=== PATIENT | female | born 1960 | race Hispanic/Latino ===

== ENCOUNTER → 2023-12-23 | Outpatient (CLI) | payer BC, MEDICARE | END | disposition home or self-care (01) | LOC: RAH 13:05 | PROVIDERS: ATTEND Nurse Practitioner Family | DX: Z12.31 Encounter for screening mammogram for malignant neoplasm of breast (principal); M85.88 Other specified disorders of bone density and structure, other site; R92.323 Mammographic fibroglandular density, bilateral breasts; M81.0 Age-related osteoporosis without current pathological fracture | CPT/HCPCS: 77067; 77080 ==

== ENCOUNTER 2024-12-16 01:56 | Observation (INO) | payer BC, MEDICARE ==
[~2024-12-16] VITALS: Ht 162.6 cm; Wt 68.8 kg
[2024-12-16 02:33] LABS: IMMATURE GRANULOCYTE ABSOLUTE 0.05 K/uL (0-1); NUCLEATED RED BLOOD CELLS 0.0 % (0.0-0.19); PLATELET COUNT (AUTO) 252 K/uL (130-400); RED BLOOD CELL COUNT(AUTO) 5.29 MIL/uL (4.00-5.50); RED CELL DISTRIBUTION WIDTH 12.5 % (11.0-15.5); WHITE BLOOD COUNT (AUTO) 13.6 K/uL (4.8-10.8)
[2024-12-16] MEDS: 0.9%NACL 1000ML 1,000 ML IV ONE (02:42)
[2024-12-16 02:49] LABS: CREATININE 1.0 mg/dL (0.5-1.0); GLOMERULAR FILTR. RATE CALC 62.0 mL/min (>90); GLUCOSE,RANDOM 132.0 mg/dL (70-105); SODIUM SERUM 139.0 mmol/L (136-145); UREA NITROGEN, BLOOD 23.0 mg/dL (7-18)
--- NOTE | 2024-12-16 02:52 | ERN ---
General Chief Complaint: Diarrhea Stated Complaint: DIARRHEA Time Seen by MD: 01:59 Time Seen by Midlevel: 01:59 Source: patient History of Present Illness Initial Comments PATIENT IS A 64-YEAR-OLD FEMALE PRESENTING TO THE EMERGENCY DEPARTMENT FOR EVALUATION OF DIARRHEA THAT STARTED YESTERDAY DECEMBER 15, 2024 AT APPROXIMATELY 12:00 P.M. AFTER SHE ATE A HERBALIFE SHAKE. THE PATIENT REPORTS OVER 20 EPISODES OF DIARRHEA OVER THE LAST 12 HOURS. DENIES ANY BLOOD IN THE STOOL. DENIES ANY FEVER, CHILLS, NAUSEA, VOMITING, OR ANY OTHER SYMPTOMS AT THIS TIME. SHE DOES REPORT A HISTORY OF A RIGHT NEPHRECTOMY IN HIS CONCERNED FOR DEHYDRATION. Allergies: Coded Allergies: No Known Allergies (Unverified Allergy, Unknown, 12/16/24) Past Medical History Past Medical History: Diabetes-Type II, Other Medical History Other: KIDNEY CANCER Past Surgical History: Tonsillectomy, Cholecystectomy, Other, Surgical History Other: RT KIDNEY ROS Dictation CONSTITUTIONAL: NEGATIVE EXCEPT FOR HPI HEAD/FACE: NEGATIVE EXCEPT FOR HPI EENT: NEGATIVE EXCEPT FOR HPI RESPIRATORY: NEGATIVE EXCEPT FOR HPI GASTROINTESTINAL/ABDOMINAL: NEGATIVE EXCEPT FOR HPI GENITOURINARY: NEGATIVE EXCEPT FOR HPI MUSCULOSKELETAL: NEGATIVE EXCEPT FOR HPI INTEGUMENTARY: NEGATIVE EXCEPT FOR HPI NEUROLOGICAL/PSYCH: NEGATIVE EXCEPT FOR HPI HEMATOLOGIC/LYMPHATIC: NEGATIVE EXCEPT FOR HPI ALL SYSTEMS NEGATIVE, EXCEPT NOTED ABOVE. 13 POINT REVIEW OF SYSTEMS ASSESSED AND ALL NEGATIVE EXCEPT FOR ABOVE. Physical Exam Physical Exam Dictation VITAL SIGNS REVIEWED GENERAL APPEARANCE: ALERT, ORIENTED X 3, NO ACUTE DISTRESS, WELL DEVELOPED, NOURISHED. HEAD AND FACE: NON-TRAUMATIC. EYES: PERRL, PINK CONJUNCTIVAS, EYELID NO TRAUMA, ANTERIOR CHAMBER WITH ARCUS SENILIS. EARS: PINNAS INTACT AND NO SIGNS OF TRAUMA OR ERYTHEMA EAR CANALS CLEAR AND NO DISCHARGE TM NO ERYTHEMA NOSE: NO DISCHARGE, NO BLEEDING. OROPHARYNX: MOUTH NORMAL, TONGUE PINK, PHARYNX CLEAR,NO ERYTHEMA, TONSILS NO EXUDATES, NO ABSCESSES NOTED, MUCOUS MEMBRANE MOIST NECK: SUPPLE, NON-TENDER, NO THYROMEGALY, NO MASSES, NO JVD, NO BRUITS BREAST:DEFERRED CHEST:NO TENDERNESS, NO CREPITUS, NO PARADOXICAL MOVEMENT, NO RETRACTIONS LUNGS:CLEAR, WELL-VENTILATED, SYMMETRIC, NO RALES, NO WHEEZING, NO RHONCHI, NO STRIDOR, GOOD BREATH SOUNDS BILATERALLY HEART: REGULAR RATE, REGULAR RHYTHM, NO MURMUR, NO GALLOPS VASCULAR: NO PERIPHERAL EDEMA, ABDOMEN: SOFT, POSITIVE BOWEL SOUNDS, NONDISTENDED, NO GUARDING, NONTENDER, NO REBOUND, NO MASSES NO HEPATOMEGALY, NO SPLENOMEGALY, NO BROWNE'S SIGN, NO HERNIAS. RECTAL: DEFERRED GENITAL: DEFERRED NEUROLOGICAL: NORMAL SPEECH, MOTOR FUNCTION INTACT, SENSORY FUNCTION INTACT MUSCULOSKELETAL: NECK NONTENDER, FULL RANGE OF MOTION, BACK NONTENDER, FULL RANGE OF MOTION, EXTREMITIES: NONTENDER, FULL RANGE OF MOTION SKIN: COLOR PINK, DRY, NO TURGOR, NO RASH, NO LACERATIONS, NO ABRASIONS, NO CONTUSIONS. LYMPHATIC: DEFERRED Results Laboratory and Microbiology Lab and Micro Result Laboratory Tests Test 12/16/24 02:25 White Blood Count 13.6 K/uL (4.8-10.8) H Red Blood Count 5.29 MIL/uL (4.00-5.50) Hemoglobin 16.4 g/dL (12.0-16.0) H Hematocrit 48.3 % (36-48) H Mean Corpuscular Volume 91.3 fL (79-99) Mean Corpuscular Hemoglobin 31.0 pg (27.0-33.0) Mean Corpuscular Hemoglobin Concent 34.0 g/dL (32.0-36.0) Red Cell Distribution Width 12.5 % (11.0-15.5) Platelet Count 252 K/uL (130-400) Mean Platelet Volume 9.5 fL (7.5-10.5) Immature Granulocyte % (Auto) 0.4 % (0-1) Neutrophils (%) (Auto) 63.5 % (40.0-77.0) Lymphocytes (%) (Auto) 27.0 % (21.0-51.0) Monocytes (%) (Auto) 6.8 % (3.0-13.0) Eosinophils (%) (Auto) 2.1 % (0.0-8.0) Basophils (%) (Auto) 0.2 % (0.0-5.0) Neutrophils # (Auto) 8.7 K/uL (1.8-7.7) H Lymphocytes # (Auto) 3.7 K/uL (1.0-4.8) Monocytes # (Auto) 0.9 K/uL (0.1-1.0) Eosinophils # (Auto) 0.28 K/uL (0.00-0.70) Basophils # (Auto) 0.03 K/uL (0.00-0.20) Absolute Immature Granulocyte (auto 0.05 K/uL (0-1) Nucleated Red Blood Cells 0.0 % (0.0-0.19) Sodium Level 139 mmol/L (136-145) Potassium Level 4.1 mmol/L (3.5-5.1) Chloride Level 107 mmol/L (101-111) Carbon Dioxide Level 20 mmol/L (21-32) L Blood Urea Nitrogen 23 mg/dL (7-18) H Creatinine 1.0 mg/dL (0.5-1.0) Glomerular Filtration Rate Calc 62 mL/min (>90) Random Glucose 132 mg/dL (70-105) H Total Calcium 9.0 mg/dL (8.5-10.1) Total Bilirubin 0.7 mg/dL (0.2-1.0) Direct Bilirubin 0.2 mg/dL (0.0-0.3) Aspartate Amino Transf (AST/SGOT) 21 U/L (10-37) Alanine Aminotransferase (ALT/SGPT) 29 U/L (12-78) Alkaline Phosphatase 77 U/L (50-136) Total Protein 7.5 g/dL (6.0-8.3) Albumin 4.3 g/dL (3.5-5.0) Lipase 43 U/L (16-77) Labs Reviewed?: Yes MDM MDM: DIFFERENTIAL DIAGNOSIS: DEHYDRATION, ELECTROLYTE ABNORMALITY RATIONALE: TESTS CONSIDERED AND ORDERED SECONDARY TO SHARED DECISION MAKING INCLUDE: PREVIOUS OUTSIDE RECORDS REVIEWED: OLD ER VISITS. RISK OF COMPLICATION AND/OR MORBIDITY OR MORTALITY OF PATIENT MANAGEMENT: NONE MEDICATIONS-PER MEDICATION RECONCILIATION NEED FOR HOSPITALIZATION: PATIENT DOES MEET CRITERIA FOR HOSPITALIZATION. NEED FOR EMERGENCY MAJOR/MINOR SURGERY: NO THERE ARE NO SOCIAL CONCERNS WITH THIS PATIENT. PRESCRIPTION DRUG MANAGEMENT PRESCRIPTIONS WILL INCLUDE SYMPTOMATIC CARE PATIENT'S PRIOR EXTERNAL MEDICAL RECORDS FROM OTHER ER VISITS WERE REVIEWED BY ME INDICATED. PRIOR TESTING AND RESULTS FROM PREVIOUS VISITS WERE REVIEWED. PRIOR TESTS WERE TAKEN INTO ACCOUNT WITH MEDICAL DECISION MAKING AND RESOURCE UTILIZATION, INDEPENDENT HISTORIAN/HISTORIANS WERE USED TO OBTAIN COMPLETE MEDICAL HISTORY. I INDEPENDENTLY INTERPRETED THE TEST THAT WERE PERFORMED, RESULTS WERE REVIEWED BY ME AND CONSIDERED FINDINGS ON RADIOLOGY IF ORDERED. MEDICAL MANAGEMENT AND EXAMINATION INTERPRETATION DISCUSSIONS WERE HAD BY ME WITH OTHER QUALIFIED HEALTHCARE PROFESSIONALS INDICATED FOR THE PATIENT'S CARE. ED Course Orders Procedure Category Date Status Time Cbc With Differential LAB 12/16/24 Complete 02:11 Basic Metabolic Panel LAB 12/16/24 Complete 02:11 Hepatic Function Panel LAB 12/16/24 Complete 02:11 Lipase LAB 12/16/24 Complete 02:11 0.9%Nacl 1000ml (Ns PHA 12/16/24 Complete 1000ml) 02:30 Stool Panel Gi By Pcr LAB 12/16/24 In Process 02:48 C Difficile A/B LAB 12/16/24 In Process 02:48 Urinalysis Profile LAB 12/16/24 Logged 02:55 Current Medications Medications (Trade) Dose Ordered Sig/Sonya Route PRN Reason Start Time Stop Time Status Last Admin Dose Admin Sodium Chloride 1,000 ml @ 0 mls/hr ONCE ONCE IV 12/16/24 02:30 12/16/24 02:31 DC 12/16/24 02:42 Vital Signs Date Time Temp Pulse Resp B/P (MAP) Pulse Ox O2 Delivery O2 Flow Rate FiO2 12/16/24 02:16 97.2 103 18 141/62 98 Room Air* 0 21 12/16/24 01:58 99.0 115 20 151/76 97 Room Air DX & DISP Disposition: Inpatient Departure Impression: Primary Impression: Severe diarrhea Additional Impression: Dehydration Condition: Stable Referrals: HUYEN WORRELL MD (PCP) I have reviewed the case, and I agree with, Diagnosis and Plan I PERFORMED THE SUBSTANTIVE PORTION OF THE VISIT. I HAVE REVIEWED AND PERSONALLY MADE AND APPROVE THE MANAGEMENT PLAN THAT IS DOCUMENTED IN THE NOTE BY MYSELF OR THE NICOLE. I ACKNOWLEDGE FOR RESPONSIBILITY FOR THE PATIENT'S MANAGEMENT PLAN. NIKHIL WORRELL Dec 16, 2024 02:52
[2024-12-16 02:53] LABS: ASPARTATE AMINOTRANSFERASE 21.0 U/L (10-37); TOTAL PROTEIN, SERUM 7.5 g/dL (6.0-8.3)
[2024-12-16] MEDS: LACTATED RINGERS 1000ML 1,000 ML IV SCH (03:18)
[2024-12-16 03:26] LABS: ABG OXYGEN SATURATION 86.9 % (94.0-98.0); BASE EXCESS,VENOUS BLOOD GAS -8.2 (-2.0-3.0); DEVICE COMMENT VBG; HCO3,VENOUS BLOOD GAS 17.4 (22.0-29.0); PCO2,VENOUS BLOOD GAS 36 (38-54); PH,VENOUS BLOOD GAS 7.298 (7.320-7.430); PO2,VENOUS BLOOD GAS 59.2 mmHg (23.0-48.0); TEMPERATURE, CELSIUS BG 37.0 CELSIUS (35.5-37.0); VENT MODE, BG RA (ROOM AIR)
[2024-12-16 03:43] LABS: RAPID GROUP A STREP negative (NEGATIVE)
[2024-12-16] MEDS ORDERED: LISI2.5T13 PO (03:43)
[2024-12-16] MEDS ORDERED: ATOR20TA65 PO (03:43)
[2024-12-16] MEDS ORDERED: DAPA10TA PO (03:43)
[2024-12-16 03:47] LABS: APPEARANCE,URINE CLEAR (CLEAR); GLUCOSE, URINE (UA) >=1000 mg/dL (NEGATIVE); LEUKOCYTE ESTERASE ,URINE NEGATIVE Leu/uL (NEGATIVE); NITRATE,URINE NEGATIVE (NEGATIVE); OCCULT BLOOD,URINE NEGATIVE (NEGATIVE)
[2024-12-16] MEDS ORDERED: TIRZ5PEN SQ (03:47)
[2024-12-16 03:50] LABS: SARS-CoV-2, RNA, NAAT NEGATIVE SARS CoV-2 (NEGATIVE)
[2024-12-16 03:50] LABS: ADD UA MICROSCOPIC YES
[2024-12-16 03:51] LABS: SQUAMOUS EPITHELIAL CELL,UR RARE /HPF (0-2)
[2024-12-16 03:59] LABS: INFLUENZA TYPE A Negative For Type A (NEGATIVE); INFLUENZA TYPE B Negative For Type B (NEGATIVE)
--- NOTE | 2024-12-16 05:07 | HP ---
[facility] HISTORY AND PHYSICAL Date of Service: Dec 16, 2024 Time of Service: 04:07 Attending/ Supervising physicians: Dr. Frederick and Dr. Adriana Padilla HISTORY OF PRESENT ILLNESS: Ms. Henry is a 64-year-old female with a history of DM type, kidney cancer s/p right nephrectomy who [place] [facility] [place] of diarrhea that started yesterday, at approximately 12:00 p.m. after taking Herbalife shake. The patient stated that she has taken Herbalife shakes for over 10 years and has never had problems with it. Today she drank at really fast due being busy with a chore and shortly after she developed diarrhea. She reports that it is most likely a bacteria or virus because she has taken Herbalife for many years. The patient reported she has had over 20 episodes of diarrhea over the last 12 hours prior to arrival. She states that due to her right nephrectomy she is concern for dehydration which prompted the ED visit. The patient denied any bloody stools, fever, chills, nausea, vomiting, any other pain, problem or concern. WBCs 13.6 on arrival. Venous gases: pH 7.298, pCO2 36, PO2 59.2, bicarbonate 17.4, base excess -8.2. UA was negative for leukocytes and nitrites. The patient was also negative for influenza, COVID, rapid strep, and C diff. ED provider reports that due to age, continued diarrhea in ER, he is not comfortable sending the patient home and he requests patient be admitted to the hospital with a diagnosis of a severe diarrhea and dehydration. I assessed the patient at bedside. The patient was in the restroom having an episode of diarrhea. Upon returned to the room the patient appeared comfortable, breathing was even, unlabored, in no distress. I informed her of labs, diagnostics, and plan of care. She verbalized understanding and is in agreement with the plan. Plan and assessment are listed below. REVIEW OF SYSTEMS 12-point ROS reviewed with the patient. All pertinent positives mentioned above. Otherwise negative, noncontributory, non-pertinent. PAST MEDICAL HISTORY: As mentioned above PAST SURGICAL HISTORY: Tonsillectomy, cholecystectomy, , right nephrectomy PAST SOCIAL HISTORY: Denied alcohol, tobacco, illicit drug use FAMILY HISTORY: Noncontributory Coded Allergies: No Known Allergies (Unverified Allergy, Unknown, 12/16/24) PHYSICAL EXAM GENERAL APPEARANCE: The patient is awake, alert, and oriented, in no acute cardiopulmonary distress. NEUROLOGICAL: Cranial nerves II-XII grossly intact. Motor is 5/5 in bilateral upper and lower extremities proximal to distal. No sensory deficits. HEENT: Face is symmetric. Pupils are equal and reactive. Extraocular movements are intact. NECK: Supple. No JVD. No thyromegaly. No submental, submandibular, pre- /postauricular, occipital or supraclavicular lymphadenopathy. CHEST: Normal chest expansion. No Telemetry. LUNGS: Absence of any rales, rhonchi or any wheezing. CARDIOVASCULAR: Regular. S1 and S2 normal. No appreciable rubs, murmurs or gallops. ABDOMEN: Soft, nontender, and nondistended. There is no rebound, voluntary guarding, or rigidity. : Deferred. No Francisco. EXTREMITIES: Non-edematous and not cyanotic. No clubbing. Good capillary refill. SKIN: No skin breakdown. Vital Sign (Last 24 Hours) 12/16/24 03:41 Temp 97.3 Pulse 98 Resp 18 B/P (MAP) 121/44 Pulse Ox 98 O2 Delivery Room Air* O2 Flow Rate 0 FiO2 21 LABS: Laboratory: Test 12/16/24 03:29 12/16/24 03:28 12/16/24 03:25 12/16/24 02:35 Range/Units Influenza Type A Antigen Negative For Type A NEGATIVE Influenza Type B Antigen Negative For Type B NEGATIVE SARS-CoV-2, RNA, NAAT NEGATIVE SARS CoV-2 NEGATIVE Group A Streptococcus Rapid negative NEGATIVE Urine Color YELLOW YELLOW Urine Appearance CLEAR CLEAR Urine pH 5.5 5.0-8.0 Urine Specific [place]man 1.026 1.001-1.031 Urine Protein NEGATIVE NEGATIVE mg/dL Urine Glucose (UA) >=1000 H NEGATIVE mg/dL Urine Ketones NEGATIVE NEGATIVE mg/dL Urine Occult Blood NEGATIVE NEGATIVE Urine Nitrate NEGATIVE NEGATIVE Urine Bilirubin NEGATIVE NEGATIVE mg/dL Urine Urobilinogen 0.2 0.2-1.0 mg/dL Urine Leukocyte Esterase NEGATIVE NEGATIVE Lee/uL Urine RBC 0-1 0-1 /HPF Urine WBC 2-5 H 0-1 /HPF Urine Squamous Epithelial Cells RARE 0-2 /HPF Urine Bacteria FEW None Seen /HPF Blood Gas Specimen Type Venous Arterial Blood Oxygen Saturation 86.9 L 94.0-98.0 % Venous Blood pH 7.298 L 7.320-7.430 Venous Blood pCO2 at Patient Temp 36 L 38-54 Venous Blood pO2 at Patient Temp 59.2 H 23.0-48.0 mmHg Venous Blood HCO3 17.4 L 22.0-29.0 Venous Blood Base Excess -8.2 L -2.0-3.0 Venous Blood Total Hemoglobin 15.5 12.0-16.0 Sodium (Blood Gas) 139 136-145 MMOL/L Bedside Potassium (Blood Gas) 4.1 3.4-4.5 MMOL/L Bedside Chloride (Blood Gas) 112 H 98-107 MMOL/L Bedside Glucose (Blood Gas) 118 H 65-95 MG/DL Bedside Ionized Calcium (Blood Gas) 1.19 1.15-1.33 MMOL/L Bedside Lactic Acid (Blood Gas) 0.88 H 0.36-0.75 MMOL/L Blood Gas Temperature 37.0 35.5-37.0 CELSIUS Blood Gas Vent Mode RA ROOM AIR FiO2 21.0 % Blood Gas Specimen Comment VBG C. difficile Antigen and Toxins A,B NEG TOXIGENIC CDIFF NEG Test 12/16/24 02:25 Range/Units White Blood Count 13.6 H 4.8-10.8 K/uL Red Blood Count 5.29 4.00-5.50 MIL/uL Hemoglobin 16.4 H 12.0-16.0 g/dL Hematocrit 48.3 H 36-48 % Mean Corpuscular Volume 91.3 79-99 fL Mean Corpuscular Hemoglobin 31.0 27.0-33.0 pg Mean Corpuscular Hemoglobin Concent 34.0 32.0-36.0 g/dL Red Cell Distribution Width 12.5 11.0-15.5 % Platelet Count 252 130-400 K/uL Mean Platelet Volume 9.5 7.5-10.5 fL Immature Granulocyte % (Auto) 0.4 0-1 % Neutrophils (%) (Auto) 63.5 40.0-77.0 % Lymphocytes (%) (Auto) 27.0 21.0-51.0 % Monocytes (%) (Auto) 6.8 3.0-13.0 % Eosinophils (%) (Auto) 2.1 0.0-8.0 % Basophils (%) (Auto) 0.2 0.0-5.0 % Neutrophils # (Auto) 8.7 H 1.8-7.7 K/uL Lymphocytes # (Auto) 3.7 1.0-4.8 K/uL Monocytes # (Auto) 0.9 0.1-1.0 K/uL Eosinophils # (Auto) 0.28 0.00-0.70 K/uL Basophils # (Auto) 0.03 0.00-0.20 K/uL Absolute Immature Granulocyte (auto 0.05 0-1 K/uL Nucleated Red Blood Cells 0.0 0.0-0.19 % Sodium Level 139 136-145 mmol/L Potassium Level 4.1 3.5-5.1 mmol/L Chloride Level 107 101-111 mmol/L Carbon Dioxide Level 20 L 21-32 mmol/L Blood Urea Nitrogen 23 H 7-18 mg/dL Creatinine 1.0 0.5-1.0 mg/dL Glomerular Filtration Rate Calc 62 >90 mL/min Random Glucose 132 H 70-105 mg/dL Total Calcium 9.0 8.5-10.1 mg/dL Total Bilirubin 0.7 0.2-1.0 mg/dL Direct Bilirubin 0.2 0.0-0.3 mg/dL Aspartate Amino Transf (AST/SGOT) 21 10-37 U/L Alanine Aminotransferase (ALT/SGPT) 29 12-78 U/L Alkaline Phosphatase 77 50-136 U/L Total Protein 7.5 6.0-8.3 g/dL Albumin 4.3 3.5-5.0 g/dL Lipase 43 16-77 U/L Current Medications Medications (Trade) Dose Ordered Sig/Sonya Route PRN Reason Start Time Stop Time Status Last Admin Dose Admin Acetaminophen (TYLenol 325MG TAB) 650 mg Q6H PRN PO FEVER/MILD PAIN LEVEL 1-3 12/16/24 03:30 01/15/25 03:29 Acetaminophen (TYLenol 650MG SUPPOSITORY) 650 mg Q6H PRN RC FEVER / MILD PAIN 1-3 IF NPO 12/16/24 03:30 01/15/25 03:29 Insulin Human Regular (humuLIN R 100 UNIT/ML 3ML) INSULIN SLIDING SCAL... ACHS SQ 12/16/24 07:30 01/15/25 07:29 Labetalol HCl (TRANdate 20MG SYG) 10 mg Q2H PRN IV SBP GREATER THAN 160 12/16/24 03:30 01/15/25 03:29 Lactated Ringer's 1,000 ml @ 100 mls/hr Q10H IV 12/16/24 03:30 01/15/25 03:29 12/16/24 03:18 100 MLS/HR Loperamide HCl (Immodium Liquid) 2 mg TID PRN PO AFTER EACH LOOSE STOOL 12/16/24 05:00 01/15/25 04:59 UNV Loperamide HCl (Immodium Liquid) 4 mg ONCE PO 12/16/24 05:00 01/15/25 04:59 UNV Ondansetron HCl (zoFRAN 4MG INJ) 4 mg Q6H PRN IVP NAUSEA/VOMITING 12/16/24 03:30 01/15/25 03:29 12/16/24 03:33 4 MG Temazepam (restORIL 15 MG CAP) 15 mg HS PRN PO INSOMNIA/SLEEP 12/16/24 03:30 01/15/25 03:29 DIAGNOSTICS / RADIOLOGY: [ ] ASSESSMENT: Dehydration s/p severe diarrhea, POA Acute kidney injury, GFR 62 (no other GFR to compare) Metabolic acidosis, POA Leukocytosis, POA Erythrocytosis, POA Diabetes mellitus with hyperglycemia, POA Glucosuria, POA Kidney cancer s/p right nephrectomy PLAN: -Admit to medical floor. -Start Rocephin 2 g IV daily for empiric treatment/possible intra-abdominal infection. -LR at 100 mL/hour. -Start brat diet as tolerated. -Add cultures to the stool sent. (negative for C diff) -Imodium 4 mg p.o. now, then Imodium 2 mg t.i.d. prn. -Monitor for any fevers. Follow WBC and stool cultures. -Monitor renal and liver function. -Monitor electrolytes and treat accordingly PRN -Reconciled home medication atorvastatin and lisinopril. -Hold home medications: Mounjaro and Farxiga and start insulin sliding scale.. -Blood pressure checks every 4 hours and as needed. -AM labs. -GI and DVT prophylaxis -Further plan/orders per hospitalization course. 1. Which of the following were discussed? Hospice Care - No Therapeutic options - Yes Advance Directives - Yes Other discussions - 2. Discussed with who? The patient 3. Voluntary nature of this service was explained to the patient? Yes 4. Amount of time spent - _ Over 35 minute 5. Reviewed by Physician? (if this service was performed by NICOLE) Yes ATTESTATION BY PHYSICIAN I have seen and examined the patient. I reviewed the documentation, medical decision making, and treatment plan as noted by the NICOLE above. I agree with the findings and plan of care. AM[facility]ILIS TAMEZ [facility] Dec 16, 2024 05:07
[2024-12-16] MEDS: SODIUM BICARB 50MEQ 50ML VIAL IV ONE (05:21)
[2024-12-16] MEDS: LOPERAMIDE 1 MG/7.5 ML UDCUP PO ONE (05:21)
[2024-12-16] MEDS ORDERED: GLUCAGON 1MG KIT 1 MG ML IM PRN (08:30)
[2024-12-16] MEDS ORDERED: PoTASSium chl 10% ELIXIR 20MEQ 20 MEQ/15 ML UDCUP PO PRN (08:30)
[2024-12-16] MEDS ORDERED: DEXTROSE 50%-WATER 50 ML DISP.SYRIN IV PRN (08:30)
[2024-12-16 09:00] LABS: ABG OXYGEN SATURATION 79.0 % (94.0-98.0); BASE EXCESS,VENOUS BLOOD GAS -5.3 (-2.0-3.0); DEVICE COMMENT VEN VERO; HCO3,VENOUS BLOOD GAS 17.2 (22.0-29.0); PCO2,VENOUS BLOOD GAS 26 (38-54); PH,VENOUS BLOOD GAS 7.431 (7.320-7.430); PO2,VENOUS BLOOD GAS 41.0 mmHg (23.0-48.0); TEMPERATURE, CELSIUS BG 37.0 CELSIUS (35.5-37.0); VENT MODE, BG ROOM AIR (ROOM AIR)
[2024-12-16 09:04] LABS: NUCLEATED RED BLOOD CELLS 0.0 % (0.0-0.19); PLATELET COUNT (AUTO) 230.0 K/uL (130-400); RED BLOOD CELL COUNT(AUTO) 4.66 MIL/uL (4.00-5.50); RED CELL DISTRIBUTION WIDTH 12.5 % (11.0-15.5); WHITE BLOOD COUNT (AUTO) 11.4 K/uL (4.8-10.8)
[2024-12-16 09:18] LABS: ASPARTATE AMINOTRANSFERASE 18.0 U/L (10-37); CREATININE 0.8 mg/dL (0.5-1.0); GLOMERULAR FILTR. RATE CALC 81.0 mL/min (>90); GLUCOSE,RANDOM 92.0 mg/dL (70-105); SODIUM SERUM 144.0 mmol/L (136-145); TOTAL PROTEIN, SERUM 6.5 g/dL (6.0-8.3); UREA NITROGEN, BLOOD 20.0 mg/dL (7-18)
[2024-12-16 09:30] LABS: PHOSPHORUS 3.4 mg/dL (2.5-4.9)
[2024-12-16] MEDS: LISINOPRIL 2.5 MG TABLET PO SCH (10:20)
[2024-12-16] MEDS: LOPERAMIDE 1 MG/7.5 ML UDCUP PO PRN (11:00)
--- NOTE | 2024-12-16 21:14 | NUR ---
REPORT GIVEN TO NURSE KIMBALL, ALL QUESTIONS ANSWERED AT THIS TIME
[2024-12-16 21:25] VITALS: BP 125/55; PULSE 99; RESP 20; TEMP 98
--- NOTE | 2024-12-16 21:25 | NUR ---
ADMIT PT ADMITTED TO ROOM 326, AAOX3. AMBULATORY WITHOUT ASSISTANCE. ADMISSION CARE DONE. CONTINUED IVF ON LR FROM ER REGULATED AT 100CC/HR. ADMISSION DATA BASE COMPLETED. V/S MONITORED, STABLE. PLACED PT ON TELE MONITOR WITH ST MG=254. ORIENTED TO ROOM AND UNIT. IN FOR MORE CARE AND MANAGEMENT.
[2024-12-16 21:30] VITALS: O2SAT 98
[2024-12-17] VITALS (7 sets, daily range): BP systolic 115–145; BP diastolic 54–75; PULSE 94–106; RESP 18–20; TEMP 97.7–98.5; O2SAT 97–98
--- NOTE | 2024-12-17 05:27 | NUR ---
ROUNDS PT RESTING IN BED. NO DISTRESS NOTED. DENIES ANY CONCERNS AT THIS TIME. KEPT RESTED AND COMFORTABLE. CALL LIGHT WITHIN REACH. FOR MORE CARE.
[2024-12-17 06:20] LABS: NUCLEATED RED BLOOD CELLS 0.0 % (0.0-0.19); PLATELET COUNT (AUTO) 189.0 K/uL (130-400); RED BLOOD CELL COUNT(AUTO) 4.38 MIL/uL (4.00-5.50); RED CELL DISTRIBUTION WIDTH 12.3 % (11.0-15.5); WHITE BLOOD COUNT (AUTO) 11.8 K/uL (4.8-10.8)
[2024-12-17 06:38] LABS: CREATININE 0.7 mg/dL (0.5-1.0); GLOMERULAR FILTR. RATE CALC 95.0 mL/min (>90); GLUCOSE,RANDOM 97.0 mg/dL (70-105); PHOSPHORUS 2.9 mg/dL (2.5-4.9); SODIUM SERUM 141.0 mmol/L (136-145); UREA NITROGEN, BLOOD 13.0 mg/dL (7-18)
[2024-12-17] MEDS: PoTASSium chloRIDE 20MEQ ER 20 MEQ ERTAB PO PRN (09:14)
[2024-12-17] MEDS: MAGNESIUM 2GM PREMIX 50ML 50 ML IV PRN (09:15)
[2024-12-17] MEDS ORDERED: MAGNESIUM 2GM PREMIX 50ML 50 ML IV SCH (10:00)
--- NOTE | 2024-12-17 12:23 | PN ---
[facility] PROGRESS NOTE Date of Service: Dec 17, 2024 Time of Service: 12:21 SUBJECTIVE: 12/17 patient remains admitted to the medical floor, case discussed with the RN, no acute events overnight, the time of my visit the patient is comfortably in bed, getting supportive care with IV fluids, she feels better compared to yesterday, less diarrhea, no nausea, no vomiting, no abdominal pain, she has been on clear liquid diet, tolerating well, she would like to try to be advanced. Leukocytosis improving, today hemoglobin 13.7, hematocrit 40.2 and WBC of 11.8, magnesium level of 1.6, we will give 2 g of magnesium sulfate IV x1, we will advance diet to diabetic diet, no modifications. Anticipate discharge home in the next 24 hours if medically stable, plan of action di scussed with the patient and family at bedside, all questions answered, in agreement. REVIEW OF SYSTEMS 12-point ROS reviewed with the patient. All pertinent positives mentioned above. Otherwise negative, noncontributory, non-pertinent. PHYSICAL EXAM GENERAL APPEARANCE: The patient is awake, alert, and oriented, in no acute cardiopulmonary distress. NEUROLOGICAL: Cranial nerves II-XII grossly intact. Motor is 5/5 in bilateral upper and lower extremities proximal to distal. No sensory deficits. HEENT: Face is symmetric. Pupils are equal and reactive. Extraocular movements are intact. NECK: Supple. No JVD. No thyromegaly. No submental, submandibular, pre- /postauricular, occipital or supraclavicular lymphadenopathy. CHEST: Normal chest expansion. No Telemetry. LUNGS: Absence of any rales, rhonchi or any wheezing. CARDIOVASCULAR: Regular. S1 and S2 normal. No appreciable rubs, murmurs or gallops. ABDOMEN: Soft, nontender, and nondistended. There is no rebound, voluntary guarding, or rigidity. : Deferred. No Francisco. EXTREMITIES: Non-edematous and not cyanotic. No clubbing. Good capillary refill. SKIN: No skin breakdown. Vital Signs (last 8hr) Date Time Temp Pulse Resp B/P (MAP) Pulse Ox O2 Delivery O2 Flow Rate FiO2 12/17/24 11:33 97.7 106 18 145/54 97 Room Air 12/17/24 08:00 98 Room Air* 0 21 12/17/24 08:00 98.4 103 18 118/60 98 Room Air 12/17/24 04:54 98.4 104 20 129/75 98 Room Air LABS: Laboratory: Test 12/17/24 10:44 12/17/24 06:11 12/16/24 08:59 12/16/24 08:16 Range/Units Whole Blood Glucose 119 H 70-110 MG/DL White Blood Count 11.8 H 4.8-10.8 K/uL Red Blood Count 4.38 4.00-5.50 MIL/uL Hemoglobin 13.7 12.0-16.0 g/dL Hematocrit 40.2 36-48 % Mean Corpuscular Volume 91.8 79-99 fL Mean Corpuscular Hemoglobin 31.3 27.0-33.0 pg Mean Corpuscular Hemoglobin Concent 34.1 32.0-36.0 g/dL Red Cell Distribution Width 12.3 11.0-15.5 % Platelet Count 189 130-400 K/uL Mean Platelet Volume 9.6 7.5-10.5 fL Nucleated Red Blood Cells 0.0 0.0-0.19 % Sodium Level 141 136-145 mmol/L Potassium Level 3.6 3.5-5.1 mmol/L Chloride Level 110 101-111 mmol/L Carbon Dioxide Level 24 21-32 mmol/L Blood Urea Nitrogen 13 7-18 mg/dL Creatinine 0.7 0.5-1.0 mg/dL Glomerular Filtration Rate Calc 95 >90 mL/min Random Glucose 97 70-105 mg/dL Total Calcium 8.0 L 8.5-10.1 mg/dL Phosphorus Level 2.9 2.5-4.9 mg/dL Magnesium Level 1.60 L 1.80-2.40 mg/dL Blood Gas Specimen Type Venous Arterial Blood Oxygen Saturation 79.0 L 94.0-98.0 % Venous Blood pH 7.431 H 7.320-7.430 Venous Blood pCO2 at Patient Temp 26 L 38-54 Venous Blood pO2 at Patient Temp 41.0 23.0-48.0 mmHg Venous Blood HCO3 17.2 L 22.0-29.0 Venous Blood Base Excess -5.3 L -2.0-3.0 Blood Gas Temperature 37.0 35.5-37.0 CELSIUS Blood Gas Vent Mode ROOM AIR ROOM AIR FiO2 21.0 % Blood Gas Specimen Comment [facility] Hemoglobin A1c 5.5 4.0-6.0 % Estimated Average Glucose (eAG) 111 70-126 mg/dL Total Bilirubin 0.5 # 0.2-1.0 mg/dL Aspartate Amino Transf (AST/SGOT) 18 10-37 U/L Alanine Aminotransferase (ALT/SGPT) 24 12-78 U/L Alkaline Phosphatase 66 50-136 U/L Total Protein 6.5 6.0-8.3 g/dL Albumin 3.6 3.5-5.0 g/dL Procalcitonin < 0.05 L 0.05-0.5 ng/mL Thyroid Stimulating Hormone (TSH) 1.74 0.36-3.74 uIU/mL Test 12/16/24 03:29 12/16/24 03:28 12/16/24 03:25 12/16/24 02:35 Range/Units Influenza Type A Antigen Negative For Type A NEGATIVE Influenza Type B Antigen Negative For Type B NEGATIVE SARS-CoV-2, RNA, NAAT NEGATIVE SARS CoV-2 NEGATIVE Group A Streptococcus Rapid negative NEGATIVE Urine Color YELLOW YELLOW Urine Appearance CLEAR CLEAR Urine pH 5.5 5.0-8.0 Urine Specific [place] 1.026 1.001-1.031 Urine Protein NEGATIVE NEGATIVE mg/dL Urine Glucose (UA) >=1000 H NEGATIVE mg/dL Urine Ketones NEGATIVE NEGATIVE mg/dL Urine Occult Blood NEGATIVE NEGATIVE Urine Nitrate NEGATIVE NEGATIVE Urine Bilirubin NEGATIVE NEGATIVE mg/dL Urine Urobilinogen 0.2 0.2-1.0 mg/dL Urine Leukocyte Esterase NEGATIVE NEGATIVE Lee/uL Urine RBC 0-1 0-1 /HPF Urine WBC 2-5 H 0-1 /HPF Urine Squamous Epithelial Cells RARE 0-2 /HPF Urine Bacteria FEW None Seen /HPF Venous Blood Total Hemoglobin 15.5 12.0-16.0 Sodium (Blood Gas) 139 136-145 MMOL/L Bedside Potassium (Blood Gas) 4.1 3.4-4.5 MMOL/L Bedside Chloride (Blood Gas) 112 H 98-107 MMOL/L Bedside Glucose (Blood Gas) 118 H 65-95 MG/DL Bedside Ionized Calcium (Blood Gas) 1.19 1.15-1.33 MMOL/L Bedside Lactic Acid (Blood Gas) 0.88 H 0.36-0.75 MMOL/L C. difficile Antigen and Toxins A,B NEG TOXIGENIC CDIFF NEG Test 12/16/24 02:25 Range/Units Immature Granulocyte % (Auto) 0.4 0-1 % Neutrophils (%) (Auto) 63.5 40.0-77.0 % Lymphocytes (%) (Auto) 27.0 21.0-51.0 % Monocytes (%) (Auto) 6.8 3.0-13.0 % Eosinophils (%) (Auto) 2.1 0.0-8.0 % Basophils (%) (Auto) 0.2 0.0-5.0 % Neutrophils # (Auto) 8.7 H 1.8-7.7 K/uL Lymphocytes # (Auto) 3.7 1.0-4.8 K/uL Monocytes # (Auto) 0.9 0.1-1.0 K/uL Eosinophils # (Auto) 0.28 0.00-0.70 K/uL Basophils # (Auto) 0.03 0.00-0.20 K/uL Absolute Immature Granulocyte (auto 0.05 0-1 K/uL Direct Bilirubin 0.2 0.0-0.3 mg/dL Lipase 43 16-77 U/L Current Medications Medications (Trade) Dose Ordered Sig/Sonya Route PRN Reason Start Time Stop Time Status Last Admin Dose Admin Acetaminophen (TYLenol 325MG TAB) 650 mg Q6H PRN PO FEVER/MILD PAIN LEVEL 1-3 12/16/24 03:30 01/15/25 03:29 Acetaminophen (TYLenol 650MG SUPPOSITORY) 650 mg Q6H PRN RC FEVER / MILD PAIN 1-3 IF NPO 12/16/24 03:30 01/15/25 03:29 Atorvastatin Calcium (LIPItor 20MG) 20 mg HS PO 12/16/24 21:00 01/15/25 20:59 12/16/24 21:03 20 MG Ceftriaxone Sodium (Rocephin 2gm Inj) 2 gm Q24H IVPB 12/16/24 05:30 12/26/24 05:29 12/17/24 04:33 2 GM Dextrose (D50w) 50 ml AD PRN IV HYPOGLYCEMIA PROTOCOL 12/16/24 08:30 01/15/25 08:29 Glucagon (Glucagon 1mg Kit) 1 mg AD PRN IM HYPOGLYCEMIA PROTOCOL 12/16/24 08:30 01/15/25 08:29 Insulin Human Regular (humuLIN R 100 UNIT/ML 3ML) INSULIN SLIDING SCAL... ACHS SQ 12/16/24 07:30 01/15/25 07:29 Labetalol HCl (TRANdate 20MG SYG) 10 mg Q2H PRN IV SBP GREATER THAN 160 12/16/24 03:30 01/15/25 03:29 Lactated Ringer's 1,000 ml @ 100 mls/hr Q10H IV 12/16/24 03:30 01/15/25 03:29 12/17/24 05:25 100 MLS/HR Lisinopril (Prinivil 2.5mg) 2.5 mg DAILY PO 12/16/24 09:00 01/15/25 08:59 12/17/24 09:14 2.5 MG Loperamide HCl (Immodium Liquid) 2 mg TID PRN PO AFTER EACH LOOSE STOOL 12/16/24 05:00 01/15/25 04:59 12/16/24 11:00 2 MG Magnesium Sulfate 50 ml @ 0 mls/hr PROTOCOL IV 12/17/24 10:00 12/17/24 09:56 DC Magnesium Sulfate 50 ml @ 0 mls/hr PROTOCOL PRN IV MAGNESIUM PROTOCOL 12/16/24 08:30 01/15/25 08:29 12/17/24 09:15 25 MLS/HR Metronidazole/ Sodium Chloride (flaGYL) 500 mg Q8H IV 12/17/24 10:00 12/17/24 10:52 DC Metronidazole/ Sodium Chloride (flaGYL) 500 mg Q8H IV 12/17/24 11:00 12/27/24 10:59 Ondansetron HCl (zoFRAN 4MG INJ) 4 mg Q6H PRN IVP NAUSEA/VOMITING 12/16/24 03:30 01/15/25 03:29 12/16/24 03:33 4 MG Potassium Chloride 100 ml @ 100 mls/hr AD PRN IV POTASSIUM PROTOCOL 12/16/24 08:30 01/15/25 08:29 Potassium Chloride (K-Dur/Klor-Con 20meq) 20 meq AD PRN PO POTASSIUM PROTOCOL 12/16/24 08:30 01/15/25 08:29 12/17/24 09:14 20 MEQ Potassium Chloride (KCl 10% Elixir 20meq/15ml) 20 meq AD PRN PO POTASSIUM PROTOCOL 12/16/24 08:30 01/15/25 08:29 Temazepam (restORIL 15 MG CAP) 15 mg HS PRN PO INSOMNIA/SLEEP 12/16/24 03:30 01/15/25 03:29 DIAGNOSTICS / RADIOLOGY: [ ] ASSESSMENT: Dehydration s/p severe diarrhea, POA Acute kidney injury, GFR 62 (no other GFR to compare) Metabolic acidosis, POA Leukocytosis, POA Erythrocytosis, POA Diabetes mellitus with hyperglycemia, POA Glucosuria, POA Kidney cancer s/p right nephrectomy PLAN: patient remains admitted to the medical floor, case discussed with the RN, no acute events overnight, the time of my visit the patient is comfortably in bed, getting supportive care with IV fluids, she feels better compared to yesterday, less diarrhea, no nausea, no vomiting, no abdominal pain, she has been on clear liquid diet, tolerating well, she would like to try to be advanced. Leukocytosis improving, today hemoglobin 13.7, hematocrit 40.2 and WBC of 11.8, magnesium level of 1.6, we will give 2 g of magnesium sulfate IV x1, we will advance diet to diabetic diet, no modifications. Anticipate discharge home in the next 24 hours if medically stable, plan of action discussed with the patient and family at bedside, all questions answered, in agreement. NEURO: Minimize central acting medications as possible. Fall Precautions. Well lighted room through the day and minimize interruptions through the night to prevent acute delirium. PULMONARY: Supplemental 02 as needed BiPAP as necessary, for respiratory distress Titrate Fio2 to keep Spo2 > or = 90% DuoNebs and CPT as needed IS hourly while awake for pulmonary hygiene prn Out of bed to chair as tolerated Maintain aspiration precautions at all times CARDIOVASCULAR: Follow hemodynamics. Vital signs per facility protocol GI & NUTRITION: Continue nutritional support Aspirations precautions Prokinetic agents and laxatives as needed KIDNEYS & ELECTROLYTES: Strict monitoring of intake and output Daily weights Avoid nephrotoxic agents Monitor electrolytes and replace as needed Goal urine output of 30mL/hr or 0.5mL/kg/hr Medications to be dosed according to renal function. Avoid contrast if possible ENDOCRINE: Maintain blood glucose between 100-180 at all times. Insulin sliding scale for blood glucose management Hypoglycemia and hyperglycemia protocol in place INFECTIOUS DISEASE: Trend temperature, WBC and procalcitonin level Follow cultures, deescalate antibiotics as soon as possible. Panculture if new onset fever HEMATOLOGY & COAGULATION: Monitor H&H. Keep Hgb > 7 Transfuse 1 unit of PRBC for Hgb < 7 Transfuse 1 pack of platelets of platelets < 20, 000 Watch for any signs and symptoms of bleeding SKIN: Pressure ulcer prevention per facility protocol Specialty mattress as needed ORTHO/REHAB Continue PT/OT PRN: MEDICATIONS Tylenol 650 mg po every 4 hrs for fever zofran 4 mg IV every 6 hrs for n/v Hydralazine 5 mg IV every 4 hrs systolic pressure > 160 bowel regiment: lactulose 20 gm PO BID PRN constipation Supportive measures: Continue GI and DVT prophylaxis All questions answered time spent: > 35 min MARVIN GREENE MD Dec 17, 2024 12:23
--- NOTE | 2024-12-17 17:58 | NUR ---
INITIAL/DCP HOME Met w pt and spouse this afternoon to discuss dcp. Prior to admission pt was living at home w her spouse. She is independent w ambulation and ADLs. She does not own any DME or receive services. Her preferred pharmacy is [facility] in [place]. She denies any insecurities with food, long term, and/or utilities. Discharge goal is to return home. Addendum: 12/17/24 at 1800 by APOLLO TAFOYA CM Amended: Links added.
[2024-12-18] VITALS: BP 146/78; PULSE 95; RESP 20; TEMP 98.9
[2024-12-18 04:00] VITALS: BP 138/69; PULSE 97; RESP 20; TEMP 98.5
[2024-12-18 06:32] LABS: IMMATURE GRANULOCYTE ABSOLUTE 0.03 K/uL (0-1); NUCLEATED RED BLOOD CELLS 0.0 % (0.0-0.19); PLATELET COUNT (AUTO) 195 K/uL (130-400); RED BLOOD CELL COUNT(AUTO) 4.15 MIL/uL (4.00-5.50); RED CELL DISTRIBUTION WIDTH 12.0 % (11.0-15.5); WHITE BLOOD COUNT (AUTO) 9.3 K/uL (4.8-10.8)
[2024-12-18 06:53] LABS: ASPARTATE AMINOTRANSFERASE 17.0 U/L (10-37); CREATININE 0.8 mg/dL (0.5-1.0); GLOMERULAR FILTR. RATE CALC 81.0 mL/min (>90); GLUCOSE,RANDOM 100.0 mg/dL (70-105); SODIUM SERUM 143.0 mmol/L (136-145); TOTAL PROTEIN, SERUM 5.8 g/dL (6.0-8.3); UREA NITROGEN, BLOOD 7.0 mg/dL (7-18)
[2024-12-18 08:00] VITALS: BP 120/72; PULSE 91; RESP 18; TEMP 97.9
[2024-12-18 08:10] VITALS: O2SAT 99
[2024-12-18 11:53] VITALS: BP 137/76; PULSE 94; RESP 19; TEMP 98.2
[2024-12-18] MEDS ORDERED: LEVO250T75 PO (12:02)
--- NOTE | 2024-12-18 14:31 | NUR ---
DISCHARGE PERIPHERAL IV REMOVED DISCHARGE EDUCATION AND INSTRUCTIONS PROVIDED TO PATIENT AND FAMILY PATIENT AND FAMILY AWARE TO FOLLOW UP WITH PCP IN 3-5 DAYS PATIENT AND FAMILY AWARE TO CONTINUE MEDICATIONS PRESCRIBED BY MD PATIENT AND FAMILY AWARE TO PATHOLOGY LABORATORY [employer] NEW PRESCRIPTION AT PREFERRED PHARMACY ALL QUESTIONS ANSWERED.
--- NOTE | 2024-12-18 15:57 | DS ---
Discharge Summary Hospital Course Summary: The patient initially admitted to the hospital December 16, 2024 with the following history of the present illness: Ms. Henry is a 64-year-old female with a history of DM type, kidney cancer s/p right nephrectomy who presented to [facility] ED for evaluation of diarrhea that started yesterday, at approximately 12:00 p.m. after taking Herbalife shake. The patient stated that she has taken Herbalife shakes for over 10 years and has never had problems with it. Today she drank at really fast due being busy with a chore and shortly after she developed diarrhea. She reports that it is most likely a bacteria or virus because she has taken Herbalife for many years. The patient reported she has had over 20 episodes of diarrhea over the last 12 hours prior to arrival. She states that due to her right nephrectomy she is concern for dehydration which prompted the ED visit. The patient denied any bloody stools, fever, chills, nausea, vomiting, any other pain, problem or concern. WBCs 13.6 on arrival. Venous gases: pH 7.298, pCO2 36, PO2 59.2, bicarbonate 17.4, base excess -8.2. UA was negative for leukocytes and nitrites. The patient was also negative for influenza, COVID, rapid strep, and C diff. ED provider reports that due to age, continued diarrhea in ER, he is not comfortable sending the patient home and he requests patient be admitted to the hospital with a diagnosis of a severe diarrhea and dehydration. HOSPITAL COURSE During the course of the hospitalization the patient was admitted to the medical floor, supportive care with IV fluids was done as well as empiric IV antibiotics. Patient noted to have mild metabolic acidosis, corrected IV with sodium bicarbonate as well as sodium bicarbonate p.o.. Today the patient is alert oriented x3, hemodynamically stable, afebrile, saturating normal on room air, denies chest pain, no shortness a breath, no nausea, no vomiting, no abdominal pain, tolerating diet, we will like to be discharged home. Assessment/Plan: Final diagnosis Dehydration s/p severe diarrhea, POA Acute kidney injury, GFR 62 (no other GFR to compare) Metabolic acidosis, POA Leukocytosis, POA Erythrocytosis, POA Diabetes mellitus with hyperglycemia, POA Glucosuria, POA Kidney cancer s/p right nephrectomy Discharge Instructions: Patient to be discharged home today, to follow up with primary care physician as an outpatient and to return to the hospital if her condition changes, patient agreed with plan and understood the information provided as well as the family who were in the room at the time of my visit Home Medications: Active Scripts Levofloxacin (Levofloxacin) 250 Mg Tablet, 1 TAB PO DAILY for 5 Days, #5 TAB 0 Refills Prov:MARVIN GREENE MD 12/18/24 Reported Medications Tirzepatide (Mounjaro) Unknown Strength Pen.injctr, SQ QWEEK 12/16/24 Lisinopril (Lisinopril) 2.5 Mg Tablet, 1 TAB PO DAILY 12/16/24 Atorvastatin Calcium (Atorvastatin Calcium) 20 Mg Tablet, 1 TAB PO HS 12/16/24 Dapagliflozin Propanediol (Farxiga) 10 Mg Tablet, 1 TAB PO DAILY 12/16/24 Time spent arranging discharge: 31-60 minutes MARVIN GREENE MD Dec 18, 2024 15:57
[2024-12-18 17:12] LABS: C DIFFICILE TOXIN A/B Not Detected (Not Detected); ENTEROAGGREGATIVE ECOLI Not Detected (Not Detected); GIARDIA LAMBLIA Not Detected (Not Detected); PLESIOMONAS SHIGELOIDES Not Detected (Not Detected); SAPOVIRUS Not Detected (Not Detected); SHIGELLA/ENTEROINVASIVE E COLI Not Detected (Not Detected); VIBRIO Not Detected (Not Detected); VIBRIO CHOLERAE Not Detected (Not Detected)
== END 2024-12-18 14:25 | disposition home or self-care (01) ==
LOC: EDH 01:56 → EDHIP 03:02 → 3DH 21:16
PROVIDERS: ADMIT Hospitalist; ATTEND Hospitalist
DX: E86.0 Dehydration (principal); E87.20 Acidosis, unspecified; N17.9 Acute kidney failure, unspecified; E11.65 Type 2 diabetes mellitus with hyperglycemia; R81 Glycosuria; C64.9 Malignant neoplasm of unspecified kidney, except renal pelvis; D72.829 Elevated white blood cell count, unspecified; Z79.4 Long term (current) use of insulin; Z20.822 Contact with and (suspected) exposure to COVID-19; Z85.528 Personal history of other malignant neoplasm of kidney; Z79.899 Other long term (current) drug therapy; Z98.890 Other specified postprocedural states
CPT/HCPCS: 96361 ×3; 96365; 96375; 99284; 80050; 83036; 82435; 82947; 83735 ×3; 84100 ×2; 84132; 84295; 82803 ×2; 83690; 85027 ×2; 87880; 87804 ×2; 82948 ×9; 83605; 87324; 81001; 36415 ×3; 87635; 36600 ×2; 87507; 84145; 96366 ×2; 96367; 80048; 80053; 85025; G0378 ×59; J7030; J3490 ×5; J0696 ×3; J2405; J3475; 80076; 84443

== ENCOUNTER → 2025-01-03 | Outpatient (CLI) | payer BC, MEDICARE ==
[~2025-01-03] MED LIST: ATOR20TA65 PO; DAPA10TA PO; LEVO250T75 PO; LISI2.5T13 PO; TIRZ5PEN SQ
== END | disposition home or self-care (01) ==
LOC: RAH 13:48
PROVIDERS: ATTEND Family Medicine
DX: Z12.31 Encounter for screening mammogram for malignant neoplasm of breast (principal)
CPT/HCPCS: 77067